=== PATIENT | female | born 1980 | race Caucasian/White ===

== ENCOUNTER 2022-01-26 17:02 | Outpatient (CLI) | payer BC, SELFPAY ==
--- NOTE | ~2022-01-26 | XR_ITS ---
EXAMINATION: XR elbow RT min 3V INDICATION: Right elbow pain, initial encounter TECHNIQUE: Four views of the right elbow were obtained. COMPARISON: None available FINDINGS: There is an acute, traumatic, closed, comminuted fracture of the radial head. There appears to be a transverse component spanning the entire width of the radius just proximal to the articular surface with an additional oblique fracture plane at the anterolateral radial head extending to the j oint space. There is a large joint effusion. No additional acute osseous abnormality is identified. IMPRESSION: 1. Comminuted intra-articular fracture of the radial head. Reviewed, dictated and finalized at location F.
== END 2022-01-26 17:03 | disposition home or self-care (01) ==
LOC: CHSLAB 17:05
PROVIDERS: PCP Nurse Practitioner Family; Visit Provider Nurse Practitioner Family
DX: M25.521 Pain in right elbow (principal); S52.124A Nondisplaced fracture of head of right radius, initial encounter for closed fracture
CPT/HCPCS: 73080

== ENCOUNTER 2022-02-03 01:42 | Day surgery (SDC) | payer BC, SELFPAY ==
--- NOTE | 2022-01-31 13:49 | PC.NURSE ---
Report to the Outpatient Waiting Room, entrance under the green pavilion located off [facility], at time __0830_ on date 02/03/22. OR Time: 10:30 . - You and your visitor will be asked a series of questions to screen for COVID 19 for your protection. - Only one visitor is allowed at this time. - The patient visitor is requested to leave or wait in car when not with patient. - A mask is required within the hospital. Patients may have clear liquids (water, carbonated beverages, clear teas, apple juice) until 3 hours prior to surgery with a maximum of 20 ounces. - Take the following medications with a SIP of water the morning of surgery: ___FLUOXETINE Medications to discontinue per physician DICLOFENAC DC IF DIRECTED BY [place] Date to take last dose Please no make-up, nail yoruba, hairspray, perfume, deodorant, or body powder the day of surgery. No jewelry (including any body piercings) or valuables the day of surgery, leave them at home. Please take a shower or bath the night before, or the morning of, surgery with an antibacterial soap. Wear comfortable, loose fitting clothing. . - Jewelry must be removed prior to entering the operating room. Rings and piercings that are not removed may be cut off. - The hospital will not accept responsibility for valuables. - Please leave all valuables, including medications, at home the day of surgery. If you are going home after surgery, a licensed emt driver must drive you home. - NO public transportation without another adult. - We recommend that an adult stay with you for 24 hours following discharge. - We also recommend that you do not drive, make important decision, drink alcoholic beverages, or take any drugs that were not prescribed by your health care provider for at least 24 hours after your discharge time. Follow any additional instructions given to you from your surgeon. If you or anyone in your household have experienced Covid symptoms in the past week, please notify your surgeon or the nurse liaison at the phone number below for possible testing. Telephone instructions given to __BESS and asked if any additional questions and then verbalized understanding. Patient advised to call surgeon office or pre surgery nurse liaison [phone] if any additional questions.
[2022-02-03] VITALS (12 sets, daily range): BP systolic 113–145; BP diastolic 66–95; PULSE 64–83; RESP 10–20; TEMP 36.1–36.8; O2SAT 96–100
--- NOTE | ~2022-02-03 | XR_ITS ---
EXAMINATION: XR surgery orthopedic DATE: 02/03/2022 11:28 INDICATION: Comminuted intra-articular fracture of the right radial head TECHNIQUE: 4 fluoroscopic images of the right elbow were obtained during procedure performed by Dr. Sherine brandt. Radiologist was not present for the imaging or procedure. The amount of fluoroscopy time used during this procedure was 0.2 minutes. COMPARISON: Right elbow radiographs dated 01/26/2022 FINDINGS: Interval resection of the fractured right radial head and placement of radial head implant which is i n expected position. Alignment of the right elbow is near-anatomic. No other fractures identified. Ex pected small amount of postoperative intra-articular gas. IMPRESSION: 1. Near-anatomic alignment post resection of the fractured right radial head and placement of a prost hetic radial head implant. Reviewed, dictated and finalized at location A. IMPRESSION: 1. Near-anatomic alignment post resection of the fractured right radial head an d placement of a prosthetic radial head implant.
--- NOTE | 2022-02-03 07:06 | WPDHPUPDATE1 ---
History and Physical Update Update Date/Time: 02/03/22 07:06 History and Physical has been reviewed, including an updated exam of the patient. There are NO changes in the patient's condition. Risks, benefits, and alternatives have been discussed and questions answered. Patient agrees to proceed with procedure.
--- NOTE | 2022-02-03 07:58 | WPDANESEPPF ---
Anes - Initial Pre Proc Eval Procedure: Operation Date: 02/03/22 10:00 Proposed Procedures p Open Reduction Internal Fixation of Right Elbow Radial Head Fracture with Possible Radial Head Replacement - Shaji Ramirez MD <Boubacar Roa DO - Last Filed: 02/07/22 17:10> Date/Time: 02/03/22 07:58 <Boubacar Roa DO - Last Filed: 02/07/22 17:10> Surgeon: Shaji Ramirez MD <Boubacar Roa DO - Last Filed: 02/07/22 17:10> Pre Op Diagnosis: displaced fracture of right radial head <Boubacar Roa DO - Last Filed: 02/07/22 17:10> Patient Data Age: 42 Gender: F Height: 1.66 m Weight: 71 kg <Boubacar Roa DO - Last Filed: 02/07/22 17:10> Allergies Allergy/AdvReac Type Severity Reaction Status Date / Time No Known Allergies Allergy Verified 02/03/22 07:58 <Boubacar Roa DO - Last Filed: 02/07/22 17:10> Home Medications Medication Instructions Recorded Confirmed Type diclofenac sodium 50 mg 50 mg PO TID PRN #30 tablet 01/26/22 02/03/22 Rx tablet,delayed release fluoxetine 20 mg PO BID 01/31/22 02/03/22 History hydrocodone-acetaminophen 1 tablet PO Q6H PRN #30 tablet 02/03/22 Rx ondansetron 8 mg PO Q8H PRN #10 tablet 02/03/22 Rx sennosides-docusate sodium [Senna 1 tab-cap PO BID PRN #20 tablet 02/03/22 Rx with Docusate Sodium] <Boubacar Roa DO - Last Filed: 02/07/22 17:10> Patient hx anesthesia problems: none <Yo Sanchez MD - Last Filed: 02/03/22 09:10> Family hx anesthesia problems: none <Yo Sanchez MD - Last Filed: 02/03/22 09:10> Results Review: All pre-operative results and documents have been reviewed as part of the pre-operative evaluation. <Boubacar Roa DO - Last Filed: 02/07/22 17:10> [facility] Past Medical History Medical History: Medical History (Updated 02/03/22 @ 07:59 by Boubacar Roa DO) Anxiety Depression Fracture of radial head, right, closed <Boubacar Roa DO - Last Filed: 02/07/22 17:10> Family History Family History: Family History (Updated 01/28/22 @ 15:14 by Mirlande Horton) Other Cerebrovascular accident Hypertension <Boubacar Roa DO - Last Filed: 02/07/22 17:10> Social History Social History: Social History (Updated 01/28/22 @ 15:15 by Mirlande Horton) Smoking status: Never smoker Alcohol intake: current Alcohol use details: social Substance use: never Substance use type: does not use Living arrangements: with family 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 [employer] Gender identity (if verbalized by the patient): Female Spiritual care concerns: No <Boubacar Roa DO - Last Filed: 02/07/22 17:10> Anes - Eval Final PreProcedure Day of Procedure 02/03/22 07:58 <Boubacar Roa DO - Last Filed: 02/07/22 17:10> Patient weight: overweight <Boubacar Roa DO - Last Filed: 02/07/22 17:10> Heart: regular rate and rhythm <Boubacar Roa DO - Last Filed: 02/07/22 17:10> Lungs: clear to auscultation and normal air movement <Boubacar Roa DO - Last Filed: 02/07/22 17:10> Airway: Mallampati scale class II <Boubacar Roa DO - Last Filed: 02/07/22 17:10> Neurological: alert and oriented <Boubacar Roa DO - Last Filed: 02/07/22 17:10> Last oral intake: >/= 8 hours <Boubacar Roa DO - Last Filed: 02/07/22 17:10> ASA classification: II <Boubacar Roa DO - Last Filed: 02/07/22 17:10> Emergent: no <Boubacar Roa DO - Last Filed: 02/07/22 17:10> Anesthetic plan: proceed <Boubacar Roa DO - Last Filed: 02/07/22 17:10> Anesthesia type and monitoring: general LMA and standard monitoring <Boubacar Roa DO - Last Filed: 02/07/22 17:10> Results Review: All pr
[2022-02-03] MEDS: ACETAMINOPHEN 500 MG TABLET 1000 MG PO (08:00)
[2022-02-03] MEDS: LACTATED RINGERS 1,000 ML 30 ML IV CONT ×3 (08:20→12:57)
[2022-02-03] MEDS: KETOROLAC 15 MG/ML VIAL (*BKC) IV PUSH (08:22)
[2022-02-03] MEDS: ceFAZolin 2 GM/D5W 50 ML 2 GM/50 ML BAG IVPB (10:13)
[2022-02-03] MEDS: BUPIVACAINE HCL 0.5% PF 30 ML VIAL INFILTRATE (10:54)
--- NOTE | 2022-02-03 12:10 | P.OP_ITS ---
Procedure Note - Detailed Date of Procedure 02/03/22 Pre-op Diagnosis displaced fracture of right radial head Post-op Diagnosis Same Procedure Performed Right radial head replacement Surgeon Shaji Ramirez MD Survey Research Manager 1st temporary administrative assistant Anesthesia General Indications 42-year-old woman fell off of horse onto her right arm. Radial head fracture with comminution. Presents for operative treatment. Findings Comminuted radial head fracture with 5 fragments, intra-articular. Description of Procedure Informed consent given and the operative extremity marked in preoperative holding area. Patient received intravenous antibiotics. She is brought to the operating room where she underwent general anesthetic by anesthesia team. Position supine on the table. Right arm prepped and draped usual sterile surgical fashion using a ChloraPrep skin solution. Arm exsanguinated and tourniquet inflated to 225 mmHg. Posterior approach to the lateral elbow performed. Fifteen blade knife used to make a longitudinal incision lateral to the olecranon. A full-thickness fasciocutaneous flap was elevated laterally. Using a splitting approach of the extensor digitorum this was split longitudinally from the lateral humerus distally to expose the proximal radius. Annular ligament was incised in line with the incision. The fracture was then identified. There were multiple pieces with intra-articular extension as well as complete displacement of the posterior piece proximal to the lateral humerus. With all of the pieces exposed it was not felt to be repairable. Radial head replacement was indicated. The pieces were removed. A portion of the proximal radius was then resected with the sagittal saw. Reaming of the intramedullary canal was then performed. We started with a 6 and proceeded up to a size 8 which had good fit. Trialing was then done and a size 0 with 20 mm radial head was found to be near anatomic as well as stable under fluoroscopy. The trial pieces were then removed. Wound was thoroughly irrigated and suctioned. The implant was then assembled on the back table and inserted in the radius with the correct rotation ensured. Fluoroscopy was done once again and good stability the elbow was noted with varus and valgus. Full range of motion good stability on exam. The coronoid was noted to be intact. The lateral collateral ligament was also noted to be intact. In thoroughly irrigated and the annular ligament repaired with 2-0 Vicryl interrupted suture. The fascia repaired with 3-0 Monocryl interrupted suture and the skin repaired with 3-0 Monocryl running subcuticular stitch. Sterile dressing applied. Patient then awoke from anesthesia, extubated taken to recovery room stable condition. All sponge, needle and all instrument counts correct in the end of case. Implants Accu Med radial head replacement size 8 stem, 0 offset 20 mm head. Estimated Blood Loss 5 Tourniquet Time 50 Drains No Packing No Pathology None sent Complications No immediate complications Condition Stable Disposition PACU
[2022-02-03] MEDS: ONDANSETRON INJ 4 MG/2 ML VIAL IV PUSH (12:27)
[2022-02-03] MEDS: fentaNYL CITRATE INJ (*CRX) 100 MCG/2 ML VIAL 25 MCG IV PUSH ×3 (12:32→12:54)
[2022-02-03] MEDS: diphenhydrAMINE HCl INJ 50 MG/ML VIAL 12.5 MG IV PUSH (13:44)
== END 2022-02-03 14:35 | disposition home or self-care (01) ==
PROVIDERS: PCP Nurse Practitioner Family; Visit Provider Orthopaedic Surgery
PROC: (CPT 24666; principal; 2022-02-03 10:00)
DX: S52.121A Displaced fracture of head of right radius, initial encounter for closed fracture (principal); V80.010A Animal-rider injured by fall from or being thrown from horse in noncollision accident, initial encounter; Y93.52 Activity, horseback riding; F41.8 Other specified anxiety disorders
CPT/HCPCS: 24666; A9270; J0690; J1100; J1200; J1885; J2250; J2405; J2704; J3010; J7120

== ENCOUNTER 2022-03-07 07:59 | Outpatient (CLI) | payer BC, SELFPAY ==
--- NOTE | ~2022-03-07 | XR_ITS ---
XR elbow RT min 3V DATE: 03/07/2022 08:18 INDICATION: Follow-up of surgery TECHNIQUE: 4 views COMPARISON: 02/09/2022 and 01/26/2022 right elbow FINDINGS: Status post surgical prosthetic radial head replacement. No fracture or dislocation is evid ent. No periosteal reaction or bone destruction. IMPRESSION: Surgical prosthetic radial head replacement for prior radial head fracture Reviewed, dictated and finalized at location A. IMPRESSION: Surgical prosthetic radial head replacement for prior radial head f racture
== END 2022-03-07 08:00 | disposition home or self-care (01) ==
LOC: CHSIMG 08:01
PROVIDERS: PCP Nurse Practitioner Family; Visit Provider Orthopaedic Surgery
DX: Z47.89 Encounter for other orthopedic aftercare (principal)
CPT/HCPCS: 73080

== ENCOUNTER 2023-03-23 07:18 | Outpatient (CLI) | payer BC, SELFPAY ==
[2023-03-23 07:36] LABS: Hematocrit 39.2 % (35.0-49.0); Hemoglobin 12.9 g/dL (12.0-15.0); Mean Corpuscular HGB Conc 32.9 g/dL (32.0-36.0); Mean Corpuscular Hemoglobin 32.4 pg (27.0-31.0); Mean Corpuscular Volume 98.5 fL (78.0-102.0); Mean Platelet Volume 8.7 fl (9.2-11.8); Platelet Count Result 334 K/mm3 (150-420); Red Blood Count 3.98 M/mm3 (4.20-5.40); Red Cell Distribution Width 11.9 % (11.6-14.4); White Blood Count 8.3 K/mm3 (4.8-10.8)
[2023-03-23 08:20] LABS: Alanine Aminotransferase 21 U/L (14-59); Albumin Level 3.5 g/dL (3.4-5.0); Alkaline Phosphatase 92 U/L (46-116); Anion Gap 4 mmol/L (8-16); Aspartate Amino Transferase 17 U/L (15-37); Bilirubin,Total 0.3 mg/dL (0.00-1.00); Blood Urea Nitrogen 12 mg/dL (7-18); Calcium 8.6 mg/dL (8.5-10.1); Carbon Dioxide 30 mmol/L (21-32); Chloride 104 mmol/L (98-108); Cholesterol 208 mg/dL (0-200); Estimated Glomerular Filt Rate > 60; Glucose 89 mg/dL (70-99); HDL Direct 77 mg/dL (40-60); LDL Cholesterol Calculated 122 mg/dL (<130); Osmolality Calculated 284 mOsm/kg (285-295); Potassium 4.3 mmol/L (3.5-5.1); Sodium 138 mmol/L (136-145); Thyroid Stimulating Hormone 1.53 uIU/mL (0.36-3.74); Total Protein 7.1 g/dL (6.4-8.2); Triglycerides 44 mg/dL (0-150)
[2023-03-26 21:44] LABS: Vitamin D 25 Hydroxy 31 ng/mL (30-100)
== END 2023-03-23 07:19 | disposition home or self-care (01) ==
LOC: CHSLAB 07:22
PROVIDERS: PCP Nurse Practitioner Family; Visit Provider Nurse Practitioner Family
DX: R53.83 Other fatigue (principal); R63.5 Abnormal weight gain
CPT/HCPCS: 36415; 80053; 80061; 82306; 84443; 85027

== ENCOUNTER 2023-03-29 00:19 | Day surgery (SDC) | payer BC, SELFPAY ==
[2023-03-23 16:34] VITALS: BMI 28.4
--- NOTE | 2023-03-23 16:54 | PC.NURSE ---
Report to the Outpatient Waiting Room, entrance under the green pavilion located off [facility], at time _1100 on date _03/29/23. Planned Procedure Time: _1300_. Time changes happen often and if your time is changed the preop area will call you the afternoon before. - You and your visitor will be asked to self-screen and do not enter if you have any COVID symptoms. - A mask is optional within the hospital at this time. Patients may have clear liquids (water, carbonated beverages, clear teas, apple juice) until 3 hours prior to surgery with a maximum of 20 ounces. - No food from midnight until time of surgery - Infants may have breast milk until 4 hours before surgery, infant formula 6 hours prior to surgery. - Children will be allowed to drink immediately following surgery. If applicable, please bring a bottle or sippy cup to assist with drinking. Juice, water, soda, and popsicles are readily available. For infants on formula, please bring formula the day of surgery. Pacifiers are allowed. Take the following medications with a SIP of water the morning of surgery: _fluoxetine DO NOT STOP ANY OF YOUR OTHER PRESCRIPTION MEDICATIONS PRIOR TO SURGERY ?EXCEPT THE FOLLOWING Medications to discontinue per physician __n/a Date to take last dose Please no make-up, nail czech, hairspray, perfume, deodorant, or body powder the day of surgery. No jewelry (including any body piercings) or valuables the day of surgery, leave them at home. Please take a shower or bath the night before, or the morning of, surgery with an antibacterial soap. Wear comfortable, loose fitting clothing. Children are encouraged to wear pajamas. - Jewelry must be removed prior to entering the operating room. Rings and piercings that are not removed may be cut off. - The hospital will not accept responsibility for valuables. - Please leave all valuables, including medications, at home the day of surgery. If you are going home after surgery, a licensed inventory associate and driver must drive you home. - NO public transportation without another adult if you receive anesthesia. - We recommend that an adult stay with you for 24 hours following discharge. - We also recommend that you do not drive, make important decision, drink alcoholic beverages, or take any drugs that were not prescribed by your health care provider for at least 24 hours after your discharge time. For Pediatric surgeries, we recommend two adults accompany the child home. Follow any additional instructions given to you from your surgeon. If you or anyone in your household have experienced Covid symptoms in the past week, please notify your surgeon or the nurse liaison at the phone number below for possible testing. Telephone instructions given to Lorena Martinez_and asked if any additional questions and then verbalized understanding. Patient advised to call surgeon office or pre surgery nurse liaison [phone] if any additional questions.
--- NOTE | 2023-03-29 09:28 | WPDANESEPPF ---
Anes - Initial Pre Proc Eval Procedure: Operation Date: 03/29/23 13:00 Proposed Procedures p Hysteroscopy, Dilation and Curettage, Day Endometrial Ablation - Ralph Malhotra MD Date/Time: 03/29/23 09:28 Surgeon: Ralph Malhotra MD Pre Op Diagnosis: irreg bleeding, dysmenorrhea Patient Data Age: 43 Gender: F Height: 1.68 m Weight: 80 kg Allergies Allergy/AdvReac Type Severity Reaction Status Date / Time No Known Allergies Allergy Verified 03/29/23 11:35 Home Medications Medication Instructions Recorded Confirmed Type fluoxetine 20 mg capsule 60 mg PO DAILY 01/31/22 03/29/23 History Patient hx anesthesia problems: none Family hx anesthesia problems: none Results Review: All pre-operative results and documents have been reviewed as part of the pre-operative evaluation. 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 [employer] Gender identity (if verbalized by the patient): Female Spiritual care concerns: No Anes - Eval Final PreProcedure Day of Procedure 03/29/23 09:28 Patient weight: overweight Heart: regular rate and rhythm Lungs: clear to auscultation Airway: Mallampati scale class II Neurological: alert and oriented Last oral intake: >/= 8 hours ASA classification: II Emergent: no Anesthetic plan: proceed Anesthesia type and monitoring: general GIVS and standard monitoring Results Review: All pre-operative results and documents have been reviewed as part of the pre-operative evaluation. Informed Consent: The patient's anesthetic plan and its attendant risks and benefits were discussed with the patient/family/POA. Questions were solicited and answers provided to the satisfaction of the patient/family/POA.
[2023-03-29 10:58] VITALS: BP 127/80; PULSE 82; RESP 18; TEMP 37.1; O2SAT 100
[2023-03-29] MEDS: ACETAMINOPHEN 500 MG TABLET 1000 MG PO (11:29)
[2023-03-29] MEDS: LACTATED RINGERS 1,000 ML 30 ML IV CONT (11:30)
--- NOTE | 2023-03-29 12:29 | PM.IMHP ---
H&P: HPI History of Present Illness Date/Time: 03/29/23 12:29 Chief Complaint: Heavy bleeding Narrative: 43 y/o G0 with menometrorrhagia and dysmenorrhea. She has longstanding infertility. Ultrasound exam shows an unremarkable endometrium, myometrium and adnexa. She is interested in surgical management of her problem. She does not desire future childbearing, but also declines contraception. 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 [employer] Gender identity (if verbalized by the patient): Female Spiritual care concerns: No Meds Home Medications and Allergies Home Medications Medication Instructions Recorded Confirmed Type fluoxetine 20 mg capsule 60 mg PO DAILY 01/31/22 03/29/23 History Allergies Allergy/AdvReac Type Severity Reaction Status Date / Time No Known Allergies Allergy Verified 03/29/23 11:35 Vital Signs Vital Signs - 24 hr 03/29/23 10:58 Temperature 37.1 C Pulse Rate 82 Respiratory Rate 18 Blood Pressure 127/80 Pulse Oximetry 100 Oxygen Delivery Room Air Exam Const: Orientation/consciousness: patient oriented x3 Other: Well-developed, well-nourished female in no acute distress. Neck: Thyroid: thyroid normal Lymphatic: no lymphadenopathy noted (in neck, axilla or inguinal nodes) Resp: Effort & Inspection: normal respiratory effort Auscultation: clear to auscultation bilaterally Cardio: Rate: regular rate Rhythm: regular rhythm Heart sounds: S1 normal heart sound present and S2 normal heart sound present GI: Other: ABD: Soft, nontender, nondistended. No guarding or rebound tenderness. No hepatosplenomegaly. : General: Yes no CVA tenderness Other: External genitalia: normal female hair distribution, without lesion. Urethral meatus: no lesion, non prolapsed. Bladder: no mass, nontender Vagina: well-estrogenized, without lesion or discharge. No cystocele or rectocele. Cervix: no lesion or discharge. Uterus: small, anteverted, freely mobile, nontender Adnexa: no mass or tenderness. Anus/perineum: no lesions, nontender Back/Spine/Pelvis: Back: no CVA tenderness Skin: General skin exam: normal color and no rashes or lesions noted Neuro: General: patient oriented x3 Extrem: Other: Extremities: nontender with no edema Psych: Mental Status: mental status grossly normal Affect: normal affect Assessment and Plan Assessment and plan (1) Menometrorrhagia: Code(s): N92.1 - Excessive and frequent menstruation with irregular cycle Status: Acute Assessment and Plan: A: Menometrorrhagia with dysmenorrhea. P: Offered hysteroscopy, dilation and sharp curettage, and endometrial ablation. She understands risks of surgery to include risks of anesthesia, risks of pain, infection, bleeding, blood products, thromboembolic phenomena and damage to adjacent structures such as bowel, bladder, ureters, blood vessels and nerves. She understands all these risks and elects to proceed with surgery. (2) Dysmenorrhea: Code(s): N94.6 - Dysmenorrhea, unspecified Status: Acute
--- NOTE | 2023-03-29 12:33 | WPDHPUPDATE1 ---
History and Physical Update Update Date/Time: 03/29/23 12:33 History and Physical has been reviewed, including an updated exam of the patient. There are NO changes in the patient's condition. Risks, benefits, and alternatives have been discussed and questions answered. Patient agrees to proceed with procedure.
[2023-03-29] MEDS: LIDOCAINE HCL 1% LOCAL INJ 10 ML VIAL INFILTRATE (13:27)
[2023-03-29] MEDS: KETOROLAC 30 MG/ML VIAL (*BKC) IV PUSH (13:31)
[2023-03-29 13:41] VITALS: BP 108/79; PULSE 81; RESP 16; O2SAT 99
--- NOTE | 2023-03-29 13:42 | W.PM.PROC2 ---
Procedure Note - Detailed Date of Procedure 03/29/23 Pre-op Diagnosis Menometrorrhagia Dysmenorrhea Post-op Diagnosis Same Procedure Performed Hysteroscopy Dilation and sharp curettage Endometrial ablation Surgeon Ralph Malhotra MD Anesthesia MAC and Local (1% lidocaine) Findings Endometrial cavity unremarkable. Both tubal ostia seen. Description of Procedure The patient was taken to the operating room where she was prepared and draped in the usual sterile fashion in the dorsal lithotomy position. The bladder was drained with a red rubber catheter. A sterile speculum was placed into the vagina. The anterior lip of the cervix was grasped with single-tooth tenaculum. Ten mL of 1% lidocaine was administered in a paracervical block. The cervix was then gently dilated using Hegar dilators until an 8 mm dilator could be passed. Hysteroscopy was performed using sterile saline as a distention medium. Findings are as noted above. Sharp curettage was then performed, and endometrial curettings were collected on a Telfa pad and passed off to be sent to pathology. Finally, the the Day device was advanced and endometrial ablation commenced without difficulty. The device was withdrawn and a second look was taken using the hysteroscope. Excellent coverage of the endometrial cavity was noted. The tenaculum was removed. Hemostasis was excellent. Sponge, lap, needle and instrument counts were correct. The patient was awakened and taken to the recovery room in stable condition. I was present and scrubbed through the entire procedure. Estimated Blood Loss 5 Drains No Packing No Pathology Yes (Endometrial curettings) Complications None Condition Stable Disposition PACU
[2023-03-29 14:10] VITALS: BP 108/79; PULSE 81; RESP 16; O2SAT 100
[2023-03-29 14:40] VITALS: BP 121/76; PULSE 62; RESP 16
== END 2023-03-29 14:50 | disposition home or self-care (01) ==
PROVIDERS: PCP Nurse Practitioner Family; Visit Provider Obstetrics & Gynecology
PROC: 0U5B8ZZ Destruction of Endometrium, Via Natural or Artificial Opening Endoscopic (ICD-10-PCS; CPT 58563; principal; 2023-03-29 13:00)
DX: N92.1 Excessive and frequent menstruation with irregular cycle (principal); N94.6 Dysmenorrhea, unspecified; F41.9 Anxiety disorder, unspecified; F32.A Depression, unspecified
CPT/HCPCS: 58563; 88305; A9270; J1885; J2250; J3010; J7120

== ENCOUNTER 2024-06-04 11:20 | Outpatient (CLI) | payer BC, SELFPAY ==
--- NOTE | ~2024-06-04 | XR_ITS ---
XR chest 2V 06/04/2024 11:36 Indication: Right rib fractures. Procedure: 2 views chest Comparison: No prior studies for comparison. Findings: There are displaced right third-eighth rib fractures. Heart size normal. No focal pneumonia , edema, effusion or pneumothorax. Impression: 1: Multiple displaced right rib fractures. Reviewed, dictated and finalized at location B. Impression: 1: Multiple displaced right rib fractures.
== END 2024-06-04 11:21 | disposition home or self-care (01) ==
LOC: CHSIMG 11:22
PROVIDERS: PCP Family Medicine; Visit Provider Family Medicine
DX: S22.41XA Multiple fractures of ribs, right side, initial encounter for closed fracture (principal)
CPT/HCPCS: 71046

== ENCOUNTER 2024-07-04 14:06 | Outpatient (CLI) | payer BC, SELFPAY ==
--- NOTE | ~2024-07-04 | XR_ITS ---
[id number] Ordering provider: Kt Agustin DO History: . S22.49XA - Multiple fx of ribs, right side 5 wks post fall . Comparison: None. FINDINGS: BONES: Fracture of the right third, fourth, fifth, 6th, seventh and eighth ribs. LUNGS: No effusions or infiltrates. No pneumothorax. SOFT TISSUES: Normal. IMPRESSION: Fracture of the third, fourth, fifth, sixth, seventh and eighth ribs. No pneumothorax or hemothorax seen. Reviewed, dictated and finalized at location A.
== END 2024-07-04 14:07 | disposition home or self-care (01) ==
PROVIDERS: PCP Family Medicine; Visit Provider Family Medicine
DX: S22.41XA Multiple fractures of ribs, right side, initial encounter for closed fracture (principal)
CPT/HCPCS: 71101

== ENCOUNTER 2024-08-20 13:47 | Outpatient (CLI) | payer BC, SELFPAY ==
--- NOTE | ~2024-08-20 | CT_ITS ---
EXAMINATION: CT sinus wo con DATE: 08/20/2024 14:05 INDICATION: Chronic sinusitis, unspecified. TECHNIQUE: Computed tomography (CT) of the paranasal sinuses was performed without intravenous contra st. Iterative reconstruction technique was employed. The dose-length product was 256.54 mGy-cm. COMPARISON: None FINDINGS: The frontal sinuses are clear. There is mild mucosal thickening in the ethmoid sinuses and left maxillary sinus. The sphenoid sinuses are clear. There is rightward deviation of the nasal septu m. The ostiomeatal units are patent. The middle turbinates are paradoxical. IMPRESSION: 1. Mild mucosal thickening in the paranasal sinuses. 2. Rightward deviation of the nasal septum. Reviewed, dictated and finalized at location A. [employer]
== END 2024-08-20 13:48 | disposition home or self-care (01) ==
PROVIDERS: PCP Family Medicine; Visit Provider Family Medicine
DX: J32.9 Chronic sinusitis, unspecified (principal); J34.2 Deviated nasal septum
CPT/HCPCS: 70486

== ENCOUNTER 2025-03-21 09:02 | Outpatient (CLI) | payer BC, SELFPAY ==
--- NOTE | ~2025-03-21 | US_ITS ---
EXAM: Focused ultrasound examination of the soft tissues of the right axilla HISTORY: R59.1 - Generalized enlarged lymph nodes TECHNIQUE: Sonographic evaluation of the soft tissues of the right axilla were performed assessing gr ayscale appearance and color Doppler flow. COMPARISON: . FINDINGS: Sonographic evaluation of the soft tissues of the right axilla demonstrates benign fibrofatty and fib romuscular elements without a cystic or solid lesion of concern. IMPRESSION: No sonographic abnormality is appreciated on focused ultrasound examination. Reviewed, dictated and finalized at location A.
== END 2025-03-21 09:03 | disposition home or self-care (01) ==
LOC: CHSIMG 09:03
PROVIDERS: PCP Family Medicine; Visit Provider Family Medicine
DX: R59.1 Generalized enlarged lymph nodes (principal)
CPT/HCPCS: 76882

== ENCOUNTER 2025-03-28 14:16 | Outpatient (CLI) | payer BC, SELFPAY ==
--- NOTE | ~2025-03-28 | MM_ITS ---
EXAMINATION: MM screening margoth BI w chato HISTORY: Screening mammogram TECHNIQUE: Craniocaudal and mediolateral oblique 3-D tomosynthesis images were obtained and synthetic 2-D images were generated. CAD analysis was submitted and interpreted. COMPARISON: No prior mammogram is available for comparison at this institution. BREAST PARENCHYMAL COMPOSITION:Dense: The breasts are extremely dense, which lowers the sensitivity o f mammography. FINDINGS: There are bilateral asymmetries in the MLO views. No suspicious metallic opacifications. IMPRESSION: Bilateral asymmetries on MLO views. Spot compression and true lateral views, and possibly ultrasound, recommended for further evaluation.. BI-RADS Category 0: Incomplete: Needs additional imaging evaluation. Reviewed, dictated and finalized at location . IMPRESSION: Bilateral asymmetries on MLO views. Spot compression and true lateral views, an d possibly ultrasound, recommended for further evaluation.. BI-RADS Category 0: Incomplete: Needs additional imaging evaluation.
== END 2025-03-28 14:17 | disposition home or self-care (01) ==
LOC: CHSIMG 14:16
PROVIDERS: PCP Family Medicine; Visit Provider Family Medicine
DX: Z12.31 Encounter for screening mammogram for malignant neoplasm of breast (principal); R92.8 Other abnormal and inconclusive findings on diagnostic imaging of breast
CPT/HCPCS: 77063; 77067

== ENCOUNTER 2025-04-11 09:18 | Outpatient (CLI) | payer BC, SELFPAY ==
--- NOTE | ~2025-04-11 | MM_ITS ---
EXAMINATION: MM diagnostic margoth BI w chato HISTORY: Bilateral breast asymmetries TECHNIQUE: Additional 3-D tomosynthesis images of the breasts were performed and synthetic 2-D images were generated. CAD analysis was submitted and interpreted. COMPARISON: 03/28/2025 BREAST PARENCHYMAL COMPOSITION:Dense: The breasts are extremely dense, which lowers the sensitivity o f mammography. FINDINGS: Bilateral breast asymmetry effaces with spot compression. No persistent mass lesion or dist ortion. No suspicious microcalcification. IMPRESSION: No mammographic evidence for malignancy. BI-RADS Category 1: Negative Reviewed, dictated and finalized at location .
--- OUTSIDE RECORDS SUMMARY | 2025-04-11 09:21 | XMS_ITS ---
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 Name Role Phone [facility] Office Contact YINKA VICK Attending Unavailable Results CBC W/DIFF - Collect Date/Ti me: 05/30/2024 16:34 [employer] ID: [id number] [address] [place], [place], [id number] LOINC: 06086-0 Test Value Unit Reference Range Code Code System Flag WBC 11.0 10^3/uL L=4.1 H=10.9 807-8 LOINC H RBC 4.09 10^6/uL L=4.00 H=5.50 789-8 LOINC HEMOGLOBIN 13.1 g/dL L=12.0 H=16.0 717-9 LOINC HEMATOCRIT 39.3 % L=38.0 H=48.0 4544-3 LOINC MCV 96 fL L=80 H=100 787-2 LOINC MCH 32.0 pg L=26.0 H=32.0 785-6 LOINC MCHC 33 g/dL L=31 H=36 786-4 LOINC RDW 12.7 % L=11.6 H=13.8 PLATELETS 368 10^3/uL L=140 H=440 777-3 LOINC MPV 6.2 fL L=7.8 H=14.5 L %NEUT 70 % L=37 H=73 %LYMPH 24 % L=20 H=50 %MONO 6 % L=2 H=10 %EOS 0 % L=0 H=10 %BASO 0 % L=0 H=2 #NEUT 7.6 K/uL L=1.4 H=6.5 H #LYMPH 2.6 K/uL L=1.3 H=2.9 #MONO 0.6 K/uL L=0.0 H=0.7 #EOS 0.1 K/uL L=0.0 H=0.7 #BASO 0.1 K/uL L=0.0 H=0.1 MANUAL DIFF NOT INDICATED RBC MORPH NORMAL COMP METAB PANEL - Collect D ate/Time: 05/30/2024 16:34 [employer] ID: [id number] [address] [place], [place], [id number] LOINC: 83501-1 Test Value Unit Reference Range Code Code System Flag SODIUM 133 mmol/L L=136 H=145 2951-2 LOINC L POTASSIUM 3.6 mmol/L L=3.5 H=5.1 2823-3 LOINC CHLORIDE 103 mmol/L L=98 H=107 2075-0 LOINC CO2 15 mmol/L L=21 H=32 2028-9 LOINC L ANION GAP 19 TOTAL PROTEIN 8.2 g/dL L=6.4 H=8.2 2885-2 LOINC ALKALINE PHOS 90 U/L L=50 H=136 6768-6 LOINC SGOT/AST 58 U/L L=15 H=37 13786-8 LOINC H SGPT/ALT 35 U/L L=12 H=78 1743-4 LOINC GLUCOSE 117 mg/dL L=74 H=106 2350-7 LOINC H ALBUMIN 4.8 g/dL L=3.4 H=5.0 1751-7 LOINC GLOBULIN 3 g/dL 44802-9 LOINC BUN 20 mg/dL L=7 H=18 3094-0 LOINC H CALCIUM 9.2 mg/dL L=8.5 H=10.1 94358-9 LOINC CREATININE 1.00 mg/dL L=0.60 H=1.00 2160-0 LOINC BUN/CREAT 20 3097-3 LOINC AGE 44 yrs NON-AA GFR 60 mL/min AFR AMER GFR 73 mL/min A/G RATIO 1.6 1759-0 LOINC TOTAL BILI 0.6 mg/dL L=0.2 H=1.0 1974- LOINC OSMOLALITY 280 mOsm/K 33745-5 LOINC LACTIC ACID - Collect Date/T rocio: 05/30/2024 16:34 [facility] ID: [id number] [address] [place], [place], [id number] LOINC: 2524-7 Test Value Unit Reference Range Code Code System Flag LACTIC ACID 2.3 mmol/L L=0.4 H=2.0 2524-7 LOINC H ETHANOL QUANT - Collect Date /Time: 05/30/2024 16:34 [facility] ID: [id number] [address] [place], [place], [id number] LOINC: 83863-4 Test Value Unit Reference Range Code Code System Flag ETHANOL 104 mg/dL L=0 H=80 94769-[address] CERVICAL SPINE WO CONTRAS T - Completed: 05/30/2024 16:15 LOINC: 73968-2 \TM00\\10PI\\LM03\\RM80\\PALMER o\\BM09\ \MRHo\ [facility] [address] [place] [address] ---------NAME--------- NUMBER SEX AGE ADMIT DISC. XRAY# F/C TYPE YEHUDA MARQUIS A [id number] F 44 05/30/24 [id number] P E/R DATE OF : 1980 M/R# [id number] PH#: [phone] ERW-7 \MRHx\ LOCATION: TRANSCRIBED: 05/30/24 16:[address] CERVICAL SPINE WO CONTRAST [id number] COMPLETED:05/30/24 16:15 SR [id number] EXAM REASON: FALL RM #: WR PHYSICIAN: YINKA VICK R A D I O L O G Y R E P O R T PROCEDURE: CT of the cervical spine DATE: 05/30/2024 COMPARISON: None HISTORY: Fall with neck trauma. Neck pain. TECHNIQUE: Study was performed according to protocol. FINDINGS: Alignment is unremarkable. Vertebral bodies are of normal height. No fracture or subluxation in the cervical spine. No anterior soft tissue swelling. There are fractures of the visualized right third, fourth, fifth, and sixth ribs. Small right pneumothorax is noted. CT of the chest is recommended for further evaluation. IMPRESSION: 1. No evidence of fracture or subluxation in the cervical spine. 2. Fractures of the visualized right third, fourth, fifth, and sixth ribs. Small right pneumothorax. CT of the chest is recommended for further evaluation. Signed by Dylon Lott MD 05/30/2024 4:[address] scans are performed using dose optimization techniques as appropriate to a performed exam including automated exposure control and/or standardized protocols for targeted exams where dose is matched to indication/reason for exam/patient size. Reviewed and Electronically Signed by: DYLON LOTT MD , Radiologist Date/Time: 05/30/24 16:25 CT CHEST ABD/PELVIS WITH CON TRAST - Completed: 05/30/2024 16:36 LOINC: \TM00\\10PI\\LM03\\RM80\\PALMER o\\BM09\ \MRHo\ [facility] [address] [place] [address] ---------NAME--------- NUMBER SEX AGE ADMIT DISC. XRAY# F/C TYPE YEHUDA MARQUIS A [id number] F 44 05/30/24 [id number] P E/R DATE OF : 1980 M/R# [id number] #: [id number] ERW-7 \MRHx\ LOCATION: TRANSCRIBED: 05/30/24 17:[address] CHEST ABD/PELVIS WITH CONTR COMPLETED:05/30/24 16:36 [id number] EXAM REASON: FALL RM #: WR PHYSICIAN: YINKA VICK R A D I O L O G Y R E P O R T Procedure: CT chest, abdomen, and pelvis with contrast CT thoracic spine CT lumbar spine DATE: 05/30/2024 COMPARISON: No prior study HISTORY: Fall. Pain. Contrast: 100 cc Visipaque 320 milligrams percent TECHNIQUE: Routine exam the chest abdomen and pelvis with contrast. CT thoracic spine. CT cervical spine. Findings CT chest: There is a moderate right pneumothorax in the anterior right chest and there are multiple rib fractures including the right anterior second third fourth fifth and sixth ribs. The left chest appears normal. Mediastinum appears normal. No pleural fluid. Findings CT abdomen: No focal liver lesion. No acute visceral injury or ascites. Pancreas spleen kidneys and adrenal glands appear normal. FINDINGS PELVIS: Negative CT pelvis. Findings CT thoracic spine: Normal alignment. Mild degenerative lower thoracic disc change appears chronic. No acute vertebral fracture. Findings CT lumbar spine: Normal lumbar alignment. No fracture or pars defect. Paraspinal soft tissues appear normal. Some slight disc-related osteophytes are noted incidentally. CONCLUSION: * CT chest - Multiple right rib fractures with a moderate right pneumothorax. * No acute finding in the abdomen or pelvis. * Negative CT thoracic and lumbar spine. This report was personally called by the radiologist. Signed by Priti Catherine MD 05/30/2024 5:[address] scans are performed using dose optimization techniques as appropriate to a performed exam including automated exposure control and/or standardized protocols for targeted exams where dose is matched to indication/reason for exam/patient size. Reviewed and Electronically Signed by: PRITI CATHERINE MD , Radiologist Date/Time: 05/30/24 17:03 CT HEAD BRAIN WO CONTRAST - Completed: 05/30/2024 16:15 LOINC: 38479-4 \TM00\\10PI\\LM03\\RM80\\PALMER o\\BM09\ \MRHo\ [facility] [address] [place] [address] ---------NAME--------- NUMBER SEX AGE ADMIT DISC. XRAY# F/C TYPE YEHUDA KANDIS A [id number] F 44 05/30/24 [id number] P E/R DATE OF : 1980 M/R# [id number] #: [id number] ERW-[id number] \MRHx\ LOCATION: TRANSCRIBED: 05/30/24 16:[address] HEAD BRAIN WO CONTRAST [id number] COMPLETED:05/30/24 16:15 SR [id number] EXAM REASON: FALL RM #: WR PHYSICIAN: YINKA VICK R A D I O L O G Y R E P O R T PROCEDURE: CT of the head DATE: 05/30/2024 COMPARISON: None HISTORY: Fall with head trauma. Headache. TECHNIQUE: Study was performed according to protocol. FINDINGS: There is no mass effect or midline shift. No intracranial hemorrhage or significant extra-axial fluid collection. Doe-white differentiation appears maintained. IMPRESSION: No acute intracranial process. Signed by Dylon Lott MD 05/30/2024 4:[address] scans are performed using dose optimization techniques as appropriate to a performed exam including automated exposure control and/or standardized protocols for targeted exams where dose is matched to indication/reason for exam/patient size. Reviewed and Electronically Signed by: DYLON LOTT MD , Radiologist Date/Time: 05/30/24 16:20 CT LUMBAR SPINE WO CONTRAST - Completed: 05/30/2024 16:24 LOINC: 12771-9 \TM00\\10PI\\LM03\\RM80\\PALMER o\\BM09\ \MRHo\ [facility] [address] [place] [address] ---------NAME--------- NUMBER SEX AGE ADMIT DISC. XRAY# F/C TYPE YEHUDA GALINDOS A [id number] F 44 05/30/24 [id number] P E/R DATE OF : 1980 M/R# [id number] #: [id number] ERW-7 [facility] LOCATION: TRANSCRIBED: 05/30/24 17:[address] LUMBAR SPINE WO CONTRAST [id number] COMPLETED:05/30/24 16:24 SR [id number] EXAM REASON: FALL RM #: WR PHYSICIAN: YINKA VICK R A D I O L O G Y R E P O R T Procedure: CT chest, abdomen, and pelvis with contrast CT thoracic spine CT lumbar spine DATE: 05/30/2024 COMPARISON: No prior study HISTORY: Fall. Pain. Contrast: 100 cc Visipaque 320 milligrams percent TECHNIQUE: Routine exam the chest abdomen and pelvis with contrast. CT thoracic spine. CT cervical spine. Findings CT chest: There is a moderate right pneumothorax in the anterior right chest and there are multiple rib fractures including the right anterior second third fourth fifth and sixth ribs. The left chest appears normal. Mediastinum appears normal. No pleural fluid. Findings CT abdomen: No focal liver lesion. No acute visceral injury or ascites. Pancreas spleen kidneys and adrenal glands appear normal. FINDINGS PELVIS: Negative CT pelvis. Findings CT thoracic spine: Normal alignment. Mild degenerative lower thoracic disc change appears chronic. No acute vertebral fracture. Findings CT lumbar spine: Normal lumbar alignment. No fracture or pars defect. Paraspinal soft tissues appear normal. Some slight disc-related osteophytes are noted incidentally. CONCLUSION: * CT chest - Multiple right rib fractures with a moderate right pneumothorax. * No acute finding in the abdomen or pelvis. * Negative CT thoracic and lumbar spine. This report was personally called by the radiologist. Signed by Priti Catherine MD 05/30/2024 5:[address] scans are performed using dose optimization techniques as appropriate to a performed exam including automated exposure control and/or standardized protocols for targeted exams where dose is matched to indication/reason for exam/patient size. Reviewed and Electronically Signed by: PRITI CATHERINE MD , Radiologist Date/Time: 05/30/24 17:03 CT MAX FACIAL BONES WITHOUT CONTRAST - Completed: 05/30/2024 16:44 LOINC: 91098-3 \TM00\\10PI\\LM03\\RM80\\PALMER o\\BM09\ \MRHo\ [facility] [address] [place] [address] ---------NAME--------- NUMBER SEX AGE ADMIT DISC. XRAY# F/C TYPE YEHUDA Hyman [id number] F 44 05/30/24 [id number] P E/R DATE OF : 1980 M/R# [id number] #: [id number] ERW-7 \MRHx\ LOCATION: TRANSCRIBED: 05/30/24 17:[address] MAX FACIAL BONES WITHOUT [id number] COMPLETED:05/30/24 16:44 SR [id number] EXAM REASON: TRAUMA RM #: 03 PHYSICIAN: YINKA VICK R A D I O L O G Y R E P O R T CT FACIAL BONES CLINICAL HISTORY: Facial trauma TECHNIQUE: Axial images of the facial bones were obtained. Coronal and sagittal reformatted images were reviewed. COMPARISON: None FINDINGS: No acute fracture or dislocation is identified. The temporomandibular joints are intact. No orbital fracture is identified. There is no evidence of intraorbital hematoma or stranding. The visualized paranasal sinuses and mastoid air cells are clear. IMPRESSION: No acute facial bone fracture or traumatic subluxation. Signed by Catracho Crenshaw MD 05/30/2024 5:[address] scans are performed using dose optimization techniques as appropriate to a performed exam including automated exposure control and/or standardized protocols for targeted exams where dose is matched to indication/reason for exam/patient size. Reviewed and Electronically Signed by: RUBIO CRENSHAW MD , Date/Time: 05/30/24 17:12 CT THOR SPINE WO CONTRAST - Completed: 05/30/2024 16:24 LOINC: 31915-2 \TM00\\10PI\\LM03\\RM80\\PALMER o\\BM09\ \MRHo\ [facility] [address] [place] [address] ---------NAME--------- NUMBER SEX AGE ADMIT DISC. XRAY# F/C TYPE YEHUDA MARQUIS A [id number] F 44 05/30/24 [id number] P E/R DATE OF : 1980 M/R# [id number] #: [id number] ERW-7 \MRHx\ LOCATION: TRANSCRIBED: 05/30/24 17:[address] THOR SPINE WO CONTRAST [id number] COMPLETED:05/30/24 16:24 SR [id number] EXAM REASON: FALL RM #: WR PHYSICIAN: YINKA VICK R A D I O L O G Y R E P O R T Procedure: CT chest, abdomen, and pelvis with contrast CT thoracic spine CT lumbar spine DATE: 05/30/2024 COMPARISON: No prior study HISTORY: Fall. Pain. Contrast: 100 cc Visipaque 320 milligrams percent TECHNIQUE: Routine exam the chest abdomen and pelvis with contrast. CT thoracic spine. CT cervical spine. Findings CT chest: There is a moderate right pneumothorax in the anterior right chest and there are multiple rib fractures including the right anterior second third fourth fifth and sixth ribs. The left chest appears normal. Mediastinum appears normal. No pleural fluid. Findings CT abdomen: No focal liver lesion. No acute visceral injury or ascites. Pancreas spleen kidneys and adrenal glands appear normal. FINDINGS PELVIS: Negative CT pelvis. Findings CT thoracic spine: Normal alignment. Mild degenerative lower thoracic disc change appears chronic. No acute vertebral fracture. Findings CT lumbar spine: Normal lumbar alignment. No fracture or pars defect. Paraspinal soft tissues appear normal. Some slight disc-related osteophytes are noted incidentally. CONCLUSION: * CT chest - Multiple right rib fractures with a moderate right pneumothorax. * No acute finding in the abdomen or pelvis. * Negative CT thoracic and lumbar spine. This report was personally called by the radiologist. Signed by Priti Catherine MD 05/30/2024 5:[address] scans are performed using dose optimization techniques as appropriate to a performed exam including automated exposure control and/or standardized protocols for targeted exams where dose is matched to indication/reason for exam/patient size. Reviewed and Electronically Signed by: PRITI CATHERINE MD , Radiologist Date/Time: 05/30/24 17:03 Social History Type Status Start Date End Date Code Code Syst em Sex Female Hospital Discharge Instructions Should you have any questions prior to discharge, please contact a member of your healthcare team. If you have left the hospital and have any questions, please contact your primary care physician. Reason For Referral No Data Found Plan of Treatment No Data Found Encounters Encounter Diagnosis Start Date Code Code Sys tem Traumatic pneumothorax, initial encounter 05/30/2024 SNOMED-CT Personal Care Team Section Performer Name Performer Role Active Date Inactive Da te [facility] Office Contact Imaging Narrative Notes [employer] \TM00\\10PI\\LM03\\RM80\\DRAo\\BM09\ \MRHo\ [employer] [address] [place] [address] ---------NAME--------- NUMBER SEX AGE ADMIT DISC. XRAY# F/C TYPE YEHUDA MARQUIS A [id number] F 44 05/30/24 [id number] P E/R DATE OF : 1980 M/R# [id number] #: [id number] ERW-7 \[facility]Hx\ LOCATION: TRANSCRIBED: 05/30/24 17:[address] THOR SPINE WO CONTRAST [id number] COMPLETED:05/30/24 16:24 SR [id number] EXAM REASON: FALL RM #: WR PHYSICIAN: YINKA VICK R A D I O L O G Y R E P O R T Procedure: CT chest, abdomen, and pelvis with contrast CT thoracic spine CT lumbar spine DATE: 05/30/2024 COMPARISON: No prior study HISTORY: Fall. Pain. Contrast: 100 cc Visipaque 320 milligrams percent TECHNIQUE: Routine exam the chest abdomen and pelvis with contrast. CT thoracic spine. CT cervical spine. Findings CT chest: There is a moderate right pneumothorax in the anterior right chest and there are multiple rib fractures including the right anterior second third fourth fifth and sixth ribs. The left chest appears normal. Mediastinum appears normal. No pleural fluid. Findings CT abdomen: No focal liver lesion. No acute visceral injury or ascites. Pancreas spleen kidneys and adrenal glands appear normal. FINDINGS PELVIS: Negative CT pelvis. Findings CT thoracic spine: Normal alignment. Mild degenerative lower thoracic disc change appears chronic. No acute vertebral fracture. Findings CT lumbar spine: Normal lumbar alignment. No fracture or pars defect. Paraspinal soft tissues appear normal. Some slight disc-related osteophytes are noted incidentally. CONCLUSION: * CT chest - Multiple right rib fractures with a moderate right pneumothorax. * No acute finding in the abdomen or pelvis. * Negative CT thoracic and lumbar spine. This report was personally called by the radiologist. Signed by Priti Catherine MD 05/30/2024 5:[address] scans are performed using dose optimization techniques as appropriate to a performed exam including automated exposure control and/or standardized protocols for targeted exams where dose is matched to indication/reason for exam/patient size. Reviewed and Electronically Signed by: PRITI CATHERINE MD , Radiologist Date/Time: 05/30/24 17:03 [employer] \TM00\\10PI\\LM03\\RM80\\DRAo\\BM09\ \MRHo\ [employer] [address] [place] [address] ---------NAME--------- NUMBER SEX AGE ADMIT DISC. XRAY# F/C TYPE YEHUDA GALINDOS A [id number] F 44 05[birth year]/24 [id number] P E/R DATE OF : 1980 M/R# [id number] #: [id number] ERW-[id number] \MRHx\ LOCATION: TRANSCRIBED: 05/30/24 17:[address] LUMBAR SPINE WO CONTRAST 59333 COMPLETED:05/30/24 16:24 SR [id number] EXAM REASON: FALL RM #: WR PHYSICIAN: YINKA VICK R A D I O L O G Y R E P O R T Procedure: CT chest, abdomen, and pelvis with contrast CT thoracic spine CT lumbar spine DATE: 05/30/2024 COMPARISON: No prior study HISTORY: Fall. Pain. Contrast: 100 cc Visipaque 320 milligrams percent TECHNIQUE: Routine exam the chest abdomen and pelvis with contrast. CT thoracic spine. CT cervical spine. Findings CT chest: There is a moderate right pneumothorax in the anterior right chest and there are multiple rib fractures including the right anterior second third fourth fifth and sixth ribs. The left chest appears normal. Mediastinum appears normal. No pleural fluid. Findings CT abdomen: No focal liver lesion. No acute visceral injury or ascites. Pancreas spleen kidneys and adrenal glands appear normal. FINDINGS PELVIS: Negative CT pelvis. Findings CT thoracic spine: Normal alignment. Mild degenerative lower thoracic disc change appears chronic. No acute vertebral fracture. Findings CT lumbar spine: Normal lumbar alignment. No fracture or pars defect. Paraspinal soft tissues appear normal. Some slight disc-related osteophytes are noted incidentally. CONCLUSION: * CT chest - Multiple right rib fractures with a moderate right pneumothorax. * No acute finding in the abdomen or pelvis. * Negative CT thoracic and lumbar spine. This report was personally called by the radiologist. Signed by Priti Catherine MD 05/30/2024 5:[address] scans are performed using dose optimization techniques as appropriate to a performed exam including automated exposure control and/or standardized protocols for targeted exams where dose is matched to indication/reason for exam/patient size. Reviewed and Electronically Signed by: PRITI CATHERINE MD , Radiologist Date/Time: 05/30/24 17:03 [employer] \TM00\\10PI\\LM03\\RM80\\DRAo\\BM09\ \MRHo\ [employer] [employer] [address] [place] [address] ---------NAME--------- NUMBER SEX AGE ADMIT DISC. XRAY# F/C TYPE YEHUDA Hyman [id number] F 44 05/30/24 [id number] P E/R DATE OF : 1980 M/R# [id number] #: [id number] ERW-[id number] \[facility]x\ LOCATION: TRANSCRIBED: 05/30/24 17:12 CT MAX FACIAL BONES WITHOUT [id number] COMPLETED:05/30/24 16:44 [id number] EXAM REASON: TRAUMA RM #: 03 PHYSICIAN: YINKA VICK R A D I O L O G Y R E P O R T CT FACIAL BONES CLINICAL HISTORY: Facial trauma TECHNIQUE: Axial images of the facial bones were obtained. Coronal and sagittal reformatted images were reviewed. COMPARISON: None FINDINGS: No acute fracture or dislocation is identified. The temporomandibular joints are intact. No orbital fracture is identified. There is no evidence of intraorbital hematoma or stranding. The visualized paranasal sinuses and mastoid air cells are clear. IMPRESSION: No acute facial bone fracture or traumatic subluxation. Signed by Catracho Crenshaw MD 05/30/2024 5:[address] scans are performed using dose optimization techniques as appropriate to a performed exam including automated exposure control and/or standardized protocols for targeted exams where dose is matched to indication/reason for exam/patient size. Reviewed and Electronically Signed by: RUBIO CRENSHAW MD , Date/Time: 05/30/24 17:12 [facility] [employer] [facility] [employer] \TM00\\10PI\\LM03\\RM80\\DRAo\\BM09\ \MRHo\ [facility] [address] [place] [address] ---------NAME--------- NUMBER SEX AGE ADMIT DISC. XRAY# F/C TYPE YEHUDA MARQUIS A [id number] F 44 05/30/24 [id number] P E/R DATE OF : 1980 M/R# [id number] #: [id number] ERW-7 \[facility]x\ LOCATION: TRANSCRIBED: 05/30/24 16:[address] CERVICAL SPINE WO CONTRAST 07474 COMPLETED:05/30/24 16:15 SR [id number] EXAM REASON: FALL RM #: WR PHYSICIAN: YINKA VICK R A D I O L O G Y R E P O R T PROCEDURE: CT of the cervical spine DATE: 05/30/2024 COMPARISON: None HISTORY: Fall with neck trauma. Neck pain. TECHNIQUE: Study was performed according to protocol. FINDINGS: Alignment is unremarkable. Vertebral bodies are of normal height. No fracture or subluxation in the cervical spine. No anterior soft tissue swelling. There are fractures of the visualized right third, fourth, fifth, and sixth ribs. Small right pneumothorax is noted. CT of the chest is recommended for further evaluation. IMPRESSION: 1. No evidence of fracture or subluxation in the cervical spine. 2. Fractures of the visualized right third, fourth, fifth, and sixth ribs. Small right pneumothorax. CT of the chest is recommended for further evaluation. Signed by Dylon Lott MD 05/30/2024 4:[address] scans are performed using dose optimization techniques as appropriate to a performed exam including automated exposure control and/or standardized protocols for targeted exams where dose is matched to indication/reason for exam/patient size. Reviewed and Electronically Signed by: DYLON LOTT MD , Radiologist Date/Time: 05/30/24 16:25 [employer] [facility] [employer] \TM00\\10PI\\LM03\\RM80\\DRAo\\BM09\ \MRHo\ [facility] [address] [place] [address] ---------NAME--------- NUMBER SEX AGE ADMIT DISC. XRAY# F/C TYPE YEHUDA MARQUIS A [id number] F 44 05/30/24 [id number] P E/R DATE OF : 1980 M/R# [id number] #: [id number] ERW-7 \[facility]x\ LOCATION: TRANSCRIBED: 05/30/24 16:[address] HEAD BRAIN WO CONTRAST 21631 COMPLETED:05/30/24 16:15 SR [id number] EXAM REASON: FALL RM #: WR PHYSICIAN: YINKA VICK R A D I O L O G Y R E P O R T PROCEDURE: CT of the head DATE: 05/30/2024 COMPARISON: None HISTORY: Fall with head trauma. Headache. TECHNIQUE: Study was performed according to protocol. FINDINGS: There is no mass effect or midline shift. No intracranial hemorrhage or significant extra-axial fluid collection. Doe-white differentiation appears maintained. IMPRESSION: No acute intracranial process. Signed by Dylon Lott MD 05/30/2024 4:[address] scans are performed using dose optimization techniques as appropriate to a performed exam including automated exposure control and/or standardized protocols for targeted exams where dose is matched to indication/reason for exam/patient size. Reviewed and Electronically Signed by: DYLON LOTT MD , Radiologist Date/Time: 05/30/24 16:20 [employer] [facility] [facility] [employer] \TM00\\10PI\\LM03\\RM80\\DRAo\\BM09\ \MRHo\ [employer] [address] [place] [address] ---------NAME--------- NUMBER SEX AGE ADMIT DISC. XRAY# F/C TYPE YEHUDA MARQUIS A [id number] F 44 05/30/24 [id number] P E/R DATE OF : 1980 M/R# [id number] #: [id number] [id number] \[facility]Hx\ LOCATION: TRANSCRIBED: 05/30/24 17:[address] CHEST ABD/PELVIS WITH CONTR COMPLETED:05/30/24 16:36 SR [id number] EXAM REASON: FALL RM #: WR PHYSICIAN: YINKA VICK R A D I O L O G Y R E P O R T Procedure: CT chest, abdomen, and pelvis with contrast CT thoracic spine CT lumbar spine DATE: 05/30/2024 COMPARISON: No prior study HISTORY: Fall. Pain. Contrast: 100 cc Visipaque 320 milligrams percent TECHNIQUE: Routine exam the chest abdomen and pelvis with contrast. CT thoracic spine. CT cervical spine. Findings CT chest: There is a moderate right pneumothorax in the anterior right chest and there are multiple rib fractures including the right anterior second third fourth fifth and sixth ribs. The left chest appears normal. Mediastinum appears normal. No pleural fluid. Findings CT abdomen: No focal liver lesion. No acute visceral injury or ascites. Pancreas spleen kidneys and adrenal glands appear normal. FINDINGS PELVIS: Negative CT pelvis. Findings CT thoracic spine: Normal alignment. Mild degenerative lower thoracic disc change appears chronic. No acute vertebral fracture. Findings CT lumbar spine: Normal lumbar alignment. No fracture or pars defect. Paraspinal soft tissues appear normal. Some slight disc-related osteophytes are noted incidentally. CONCLUSION: * CT chest - Multiple right rib fractures with a moderate right pneumothorax. * No acute finding in the abdomen or pelvis. * Negative CT thoracic and lumbar spine. This report was personally called by the radiologist. Signed by Priti Catherine MD 05/30/2024 5:[address] scans are performed using dose optimization techniques as appropriate to a performed exam including automated exposure control and/or standardized protocols for targeted exams where dose is matched to indication/reason for exam/patient size. Reviewed and Electronically Signed by: PRITI CATHERINE MD , Radiologist Date/Time: 05/30/24 17:03
== END 2025-04-11 09:19 | disposition home or self-care (01) ==
PROVIDERS: PCP Family Medicine; Visit Provider Family Medicine
DX: R92.8 Other abnormal and inconclusive findings on diagnostic imaging of breast (principal)
CPT/HCPCS: 77062; 77066; G0279